=== PATIENT | female | born 1940 | race Caucasian/White ===

== ENCOUNTER → 2017-01-20 | Outpatient (CLI) | payer OTHER ==
[2014-11-08 09:33] VITALS: BP 122/65
== END ==
LOC: RT 12:51
PROVIDERS: ATTEND Obstetrics & Gynecology Obstetrics
DX: R26.89 Other abnormalities of gait and mobility (principal)
CPT/HCPCS: 95910

== ENCOUNTER → 2017-08-17 | Outpatient (CLI) | payer OTHER ==
[2014-11-08 09:33] VITALS: BP 122/65
--- NOTE | 2017-08-17 11:13 | MG ---
HISTORY: SCREENING Comparison: 08/08/2016 FINDINGS: Bilateral CC and MLO projections of the right and left breast were obtained. Dense fibroglandular ti ssue is seen to be present. No significant architectural distortion, mass or clustered microcalcific ations can be observed to suggest malignancy. No skin thickening or nipple retraction is appreciated . No pathological lymphadenopathy can be identified. Benign-appearing calcifications scattered thro ughout the right and left breasts are observed. IMPRESSION: NO RADIOGRAPHIC EVIDENCE OF MALIGNANCY. ACR CATEGORY: 2 - benign findings. FOLLOW-UP EXAM 1 YEAR. Diagnostic CAD was utilized and reviewed. * 0 (ZERO) - ASSESSMENT INCOMPLETE; ADDITIONAL IMAGING IS NEEDED. * 1/ (ONE) - NEGATIVE. * 2/II (TWO) - BENIGN FINDINGS. * 3/III (THREE) - PROBABLY BENIGN FINDING; SHORT INTERVAL FOLLOW-UP SUGGESTED. * 4/IV (FOUR) - SUSPICIOUS ABNORMALITY; BIOPSY SHOULD BE CONSIDERED. * 5/V - HIGHLY SUSPICIOUS OF MALIGNANCY; BIOPSY SHOULD BE PERFORMED. A NEGATIVE X-RAY REPORT SHOULD NOT DELAY BIOPSY IF A DOMINANT OR CLINICALLY SUSPICIOUS MASS IS PRESENT; 4 TO 8 PERCENT OF CANCERS ARE NOT IDENTIFIED BY X-RAY. A NEGA TIVE REPORT MAY REINFORCE THE CLINICAL IMPRESSION. ADENOSIS AND DENSE BREASTS MAY OBSCURE AN UNDERLY ING NEOPLASM. Reported By:
== END ==
LOC: RAD 09:07
PROVIDERS: ATTEND Specialist
DX: Z12.31 Encounter for screening mammogram for malignant neoplasm of breast (principal)
CPT/HCPCS: 77067

== ENCOUNTER 2018-08-23 19:58 | Observation (INO) ==
[2018-08-23] MEDS ORDERED: ZOFRAN INJ 4 MG VIAL ONE (20:19)
[2018-08-23] MEDS ORDERED: NS 1000 ML 1,000 ML ONE (20:29)
[2018-08-23] MEDS: NS 1000 ML 1,000 ML IV SCH (20:30)
[2018-08-23] MEDS ORDERED: ZOFRAN INJ 4 MG VIAL IVP ONE (20:30)
[2018-08-23 20:40] LABS: BASOPHILS % (AUTO) 0.3 % (0.2-1.0); EOSINOPHILS # (AUTO) 0.3 x10^3/uL (0.0-0.2); EOSINOPHILS % (AUTO) 2.3 % (0.9-2.9); HEMATOCRIT 41.8 % (36.0-47.0); HEMOGLOBIN 13.8 g/dL (12.0-16.0); LYMPHOCYTES # (AUTO) 0.5 X10^3/uL (1.3-2.9); LYMPHOCYTES % (AUTO) 4.2 % (21.0-51.0); MEAN CORPUSCULAR HEMOGLOBIN 28.2 pg (27.0-34.0); MEAN CORPUSCULAR VOLUME 85.7 fL (80.0-100.0); MEAN PLATELET VOLUME 9.4 fL (7.4-11.0); MONOCYTES # (AUTO) 0.6 x10^3/uL (0.3-0.8); MONOCYTES % (AUTO) 4.5 % (0.0-13.0); NEUTROPHILS # (AUTO) 11.1 x10^3/uL (2.2-4.8); NEUTROPHILS % (AUTO) 88.7 % (42.0-75.0); PLATELET COUNT 231 X10^3/uL (150.0-450.0); RED BLOOD COUNT 4.87 X10^6/uL (3.5-5.4); RED CELL DISTRIBUTION WIDTH 13.1 % (11.6-16.5); WHITE BLOOD COUNT 12.6 X10^3/uL (3.6-10.0)
[2018-08-23 20:56] LABS: BILIRUBIN,URINE NEGATIVE (NEGATIVE); BLOOD/HEMOGLOBIN,URINE 1+ (NEGATIVE); GLUCOSE, URINE NEGATIVE (NEGATIVE); KETONES,URINE 1+ (NEGATIVE); LEUKOCYTE ESTERASE ,URINE 1+ (NEGATIVE); NITRITES,URINE NEGATIVE (NEGATIVE); PROTEIN,URINE 2+ (NEGATIVE); UROBILINOGEN,URINE NORMAL (NORMAL)
[2018-08-23 20:56] LABS: LACTIC ACID 1.7 mmol/L (0.4-2.0)
[2018-08-23 20:58] LABS: BLOOD UREA NITROGEN 18 mg/dL (7-18); CALCIUM 9.7 mg/dL (8.5-10.1); CARBON DIOXIDE 22.6 mmol/L (21-32); CHLORIDE 96 mmol/L (98-107); COR NA(FOR HYPERGLY) 133 mmol/L (136-145); CREATININE 1.32 mg/dL (0.55-1.02); SODIUM 131 mmol/L (136-145); TROPONIN I < 0.02 ng/mL (0-1.5); eGFR NON BLACK RACES 41 (>60)
[2018-08-23 21:02] LABS: ALANINE AMINOTRANSFERASE 115 Units/L (12-78); ALBUMIN 3.5 g/dL (3.4-5.0); ALKALINE PHOSPHATASE 77 Units/L (46-116); AMYLASE 63 Units/L (25-115); ASPARTATE AMINO TRANSFERASE 123 Units/L (15-37); CKMB % 3.1 % (<4); CREATINE KINASE 32 Units/L (26-192); CREATINE KINASE MB < 1.0 ng/mL (0-4.0); LIPASE 149 Units/L (73-393); TOTAL PROTEIN 7.8 g/dL (6.4-8.2)
[2018-08-23 21:08] LABS: AMORPHOUS SEDIMENT,UR 1+ /HPF (NEGATIVE); APPEARANCE,URINE CLEAR (CLEAR); BACTERIA,URINE TRACE /HPF (NEGATIVE); COLOR,URINE YELLOW (YELLOW); RENAL EPITHELIAL CELLS,URINE FEW /HPF (NEGATIVE); SQUAMOUS EPITHELIAL CELL,UR MODERATE /HPF (NEGATIVE)
--- NOTE | 2018-08-23 21:34 | DR.GENAD ---
HPI Time Seen Time Seen by Provider: 08/23/18 20:19 HPI Comment HPI Comment: PATIENT IS 78YR OLD FEMALE WITH HISTORY OF HYPERTENSION AND HYPOTHYROIDISM PRESENTS TO ED WITH INCREASING GENERALIZE WEAKNESS AND FEVER FOR FEW DAYS. SHE IS HAVING NAUSEA AND VOMITING TODAY. CURRENTLY TAKING MACROBID PAST 2 DAYS FOR UTI. DENIES CHEST PAIN. Complaint/Symptoms Chief Complaint Doctors Comments: FEVER, GENERALIZE WEAKNESS, NAUSEA AND VOMITING. Nurses notes reviewed Nurses Notes Review: Yes Source History Provided: Patient and Family Member Mode of Arrival Mode of Arrival: Wheelchair Timing Came on: Suddenly Duration Duration: Constant Duration: Days Severity Severity: Moderate Modifying Factors Worsens:: MOVING Improves:: REST. Associated Signs and Symptoms Associated Signs and Symptoms: NAUSEA AND VOMITING. PMH PMH Past Medical History: Hypertension and Hypothyroidism Past Surgical History: Yes Surgical History: Ortho Surgery Family History Family Medical History: Cancer Social History Do you use any recreational Drugs:: No ROS Review of Systems Constitutional: Fever, Malaise, Weakness and Fatigue Eyes: No Symptoms Reported ENTM: No Symptoms Reported Respiratoy: Short of Breath Cardiovascular: No Symptoms Reported Gastrointestinal/Abdominal: Abdominal Pain, Nausea and Vomiting Genitourinary: No Symptoms Reported Neurological: Weakness Musculoskeletal: No Symptoms Reported Integumentary: No Symptoms Reported Hematologic/Lymphatic: No Symptoms Reported Endocrine: No Symptoms Reported Psychiatric: No Symptoms Reported All Other Systems: Reviewed and Negative PE Vital Signs Vitals: Temperature 97.7 F Pulse Rate [Right Brachial] 75 Pulse Rate [Left] 71 Pulse Rate 84 Respiratory Rate 20 Blood Pressure [Left Arm] 134/63 Blood Pressure 147/65 O2 Sat by Pulse Oximetry 93 General Limitations: No Limitations General Appearance: Alert Head Head Exam: Normal Inspection Eyes Eye exam: Normal Appearance ENT ENT Exam: Normal Exam External Ear Exam: Normal External Inspection TM/Canal Exam: Bilateral: Normal Nose Exam: Normal Nose Exam Mouth Exam: Normal Inspection Throat Exam: Normal Inspection Neck Neck Exam: Normal Inspection and Trachea Midline; negative Tenderness, Meningismus and Lymphadenopathy Chest Chest Inspection: Symmetric Chest Wall Rise Respiratory Respiratory Exam: Normal Lung Sounds Bilat Respiratory Exam: Bilateral: Rhonchi Cardiovascular Cardiovascular Exam: Regular Rate and Normal Rhythm Abdominal Exam Abdominal Exam: Normal Inspection, Normal Bowel Sounds, Soft and Tenderness Abdominal Tenderness: Diffuse and Moderate Extremities Extremities Exam: Normal Inspection Back Back Exam: Normal Inspection Neurologic Neurological Exam: Alert Skin Skin Exam: Dry MDM Additional Information Additional Information Obtained From: Family Differential Diagnosis Differential Diagnosis: GENRALIZE WEAKNESS, NAUSEA/VOMITING, DEHYDRATION, PYLONEPHRITIS, PNEUMONIA, COURSE Treatment Treatment: SEE ORDERS. IV FLUIDS AND IV ANTIBIOTICS IN ED. Consultation Consultation Comments: DISCUSS PATIENT WITH DR. LUTZ. HE WILL ADMIT PATIENT. Education/Counseling Education/Counseling: Patient and Family Educated On: Diagnosis ROR Labs Reviewed Laboratory Results Reviewed?: Yes Result Diagrams: 08/24/18 04:34 08/24/18 04:34 Laboratory: WBC 7.1 X10^3/uL (3.6-10.0) 08/24/18 04:34 RBC 4.30 X10^6/uL (3.5-5.4) 08/24/18 04:34 Hgb 12.1 g/dL (12.0-16.0) 08/24/18 04:34 Hct 37.0 % (36.0-47.0) 08/24/18 04:34 MCV 86.0 fL (80.0-100.0) 08/24/18 04:34 MCH 28.2 pg (27.0-34.0) 08/24/18 04:34 MCHC 32.8 g/dL (33.0-35.0) L 08/24/18 04:34 RDW 13.1 % (11.6-16.5) 08/24/18 04:34 Plt Count 207 X10^3/uL (150.0-450.0) 08/24/18 04:34 MPV 9.5 fL (7.4-11.0) 08/24/18 04:34 Neut % (Auto) 82.3 % (42.0-75.0) H 08/24/18 04:34 Lymph % (Auto) 8.7 % (21.0-51.0) L 08/24/18 04:34 [place] % (Auto) 5.5 % (0.0-13.0) 08/24/18 04:34 Eos % (Auto) 2.9 % (0.9-2.9) 08/24/18 04:34 Baso % (Auto) 0.6 % (0.2-1.0) 08/24/18 04:34 Neut # (Auto) 5.8 x10^3/uL (2.2-4.8) H 08/24/18 04:34 Lymph # (Auto) 0.6 X10^3/uL (1.3-2.9) L 08/24/18 04:34 [place] # (Auto) 0.4 x10^3/uL (0.3-0.8) 08/24/18 04:34 Eos # (Auto) 0.2 x10^3/uL (0.0-0.2) 08/24/18 04:34 Baso # (Auto) 0.0 X10^3/uL (0.0-0.1) 08/24/18 04:34 Absolute Nucleated RBC 0.0 /100WBC 08/24/18 04:34 Sodium 136 mmol/L (136-145) 08/24/18 04:34 Corrected Sodium TNP 08/24/18 04:34 Potassium 4.1 mmol/L (3.5-5.1) 08/24/18 04:34 Chloride 102 mmol/L (98-107) 08/24/18 04:34 Carbon Dioxide 26.4 mmol/L (21-32) 08/24/18 04:34 BUN 14 mg/dL (7-18) 08/24/18 04:34 Creatinine 1.13 mg/dL (0.55-1.02) H 08/24/18 04:34 Est GFR (MDRD) Af Amer 60 (>60) 08/24/18 04:34 Est GFR (MDRD) Non-Af 49 (>60) L 08/24/18 04:34 Glucose 103 mg/dL (65-99) H 08/24/18 04:34 Lactic Acid 1.7 mmol/L (0.4-2.0) 08/23/18 20:30 Calcium 9.2 mg/dL (8.5-10.1) 08/24/18 04:34 Corrected Calcium 10.2 mg/dL (8.5-10.1) H 08/24/18 04:34 Magnesium 2.0 mg/dL (1.7-2.9) 08/24/18 04:34 Total Bilirubin 0.30 mg/dL (0.2-1.0) 08/24/18 04:34 AST 70 Units/L (15-37) H 08/24/18 04:34 ALT 87 Units/L (12-78) H 08/24/18 04:34 Alkaline Phosphatase 58 Units/L (46-116) 08/24/18 04:34 Creatine Kinase 32 Units/L (26-192) 08/24/18 11:00 CK-MB (CK-2) < 1.0 ng/mL (0-4.0) 08/24/18 11:00 CK/CKMB % Calc 3.1 % (<4) 08/24/18 11:00 Troponin I < 0.02 ng/mL (0-1.5) 08/24/18 11:00 B-Natriuretic Peptide 49.0 pg/mL (0-79) 08/23/18 20:30 Total Protein 6.3 g/dL (6.4-8.2) L 08/24/18 04:34 Albumin 2.8 g/dL (3.4-5.0) L 08/24/18 04:34 Globulin 3.5 g/dL (2.5-4.5) 08/24/18 04:34 Albumin/Globulin Ratio 0.8 Ratio (1.1-2.1) L 08/24/18 04:34 Amylase 63 Units/L (25-115) 08/23/18 20:30 Lipase 149 Units/L (73-393) 08/23/18 20:30 Specimen Type Clean catch urine 08/23/18 20:50 Urine Color Yellow (YELLOW) 08/23/18 20:50 Urine Appearance Clear (CLEAR) 08/23/18 20:50 Urine pH 6.0 (5.0 - 8.0) 08/23/18 20:50 Ur Specific [place] 1.020 (1.000-1.030) 08/23/18 20:50 Urine Protein 2+ (NEGATIVE) 08/23/18 20:50 Urine Glucose (UA) Negative (NEGATIVE) 08/23/18 20:50 Urine Ketones 1+ (NEGATIVE) 08/23/18 20:50 Urine Occult Blood 1+ (NEGATIVE) 08/23/18 20:50 Urine Nitrite Negative (NEGATIVE) 08/23/18 20:50 Urine Bilirubin Negative (NEGATIVE) 08/23/18 20:50 Urine Urobilinogen Normal (NORMAL) 08/23/18 20:50 Ur Leukocyte Esterase 1+ (NEGATIVE) 08/23/18 20:50 Urine RBC 3-5 /HPF (NONE SEEN) 08/23/18 20:50 Urine WBC 3-5 /HPF (NONE SEEN) 08/23/18 20:50 Ur Squamous Epith Cells Moderate /HPF (NEGATIVE) 08/23/18 20:50 Ur Renal Epithelial Cell Few /HPF (NEGATIVE) 08/23/18 20:50 Amorphous Sediment 1+ /HPF (NEGATIVE) 08/23/18 20:50 Urine Bacteria Trace /HPF (NEGATIVE) 08/23/18 20:50 Ur Culture Indicated? No/not indicated 08/23/18 20:50 XRAY XRAY Interpreted by: Radiologist XRAY Findings: SEE REPORT. HAVE DISCUSS REPORT WITH PATIENT AND FAMILY. Diagnosis Discharge Problem: Generalized weakness, UTI (urinary tract infection), Nausea & vomiting
--- NOTE | 2018-08-23 22:36 | CT ---
STUDY: CT ABDOMEN AND PELVIS WITHOUT IV AND ORAL CONTRAST HISTORY: Weakness, UTI, nausea. Comparison: November 08, 2014. Technique: Multiple axial images of the abdomen and pelvis were obtained from the lung bases to the pubic symphysis without the administration of IV contrast. Findings: There are changes of COPD in visualized portions of both lungs. There is atelectasis in both lung bases. There may be very small bilateral pleural effusions. CT abdomen: The liver, gallbladder, spleen, pancreas, kidneys, and adrenal glands are normal in appearance. No significant mesenteric lymphadenopathy or inflammatory stranding is appreciated. The stomach is normal in appearance. The small bowel is normal in appearance, without evidence of bowel wall thickening or small bowel obstruction. The terminal ileum and cecum are normal. The appendix is normal in appearance. There is no evidence of right lower quadrant fat stranding. The ascending and transverse colon are within normal limits. The descending colon contains scattered diverticuli. CT pelvis: There multiple diverticuli in the sigmoid colon. There is no evidence of diverticulitis. The rectum is normal. The urinary bladder is mostly obscured by beam hardening and streak artifact from bilateral hip prostheses. No abnormal fluid collections are identified in the pelvis. There is no evidence of acute osseous abnormality. IMPRESSION: 1. No evidence of acute abdominal or pelvic abnormality. 2. Diverticulosis without evidence of diverticulitis. Reported By:
[2018-08-23] MEDS ORDERED: ROCEPHIN VIAL 1 GRAM IVP ONE (23:12)
[2018-08-23] MEDS ORDERED: ROCEPHIN VIAL 1 GRAM ONE (23:24)
[2018-08-24] MEDS ORDERED: VITAMIN A 8000 UNIT PO SCH (00:12)
--- NOTE | 2018-08-24 00:12 | RAD ---
AP chest Indication: Increasing weakness with nausea Comparison: None available Findings: Heart size is enlarged. There is moderate interstitial lung changes bilaterally; however, there is also increased peribronchial thickening bilaterally. No dense airspace consolidation pleural effusion or pneumothorax. No acute osseous abnormality. Impression: Cardiomegaly with chronic interstitial lung changes and diffuse increased peribronchial thickening which is indeterminate as this can be seen in setting of acute or chronic bronchitis for which clinical correlation is needed. No pleural effusion or pneumothorax. Reported By:
[2018-08-24 01:11] VITALS: BMI 27.2
[2018-08-24] MEDS: NS 1000 ML 1,000 ML IV SCH ×3 (04:49→20:03)
[2018-08-24 05:16] LABS: BASOPHILS % (AUTO) 0.6 % (0.2-1.0); EOSINOPHILS # (AUTO) 0.2 x10^3/uL (0.0-0.2); EOSINOPHILS % (AUTO) 2.9 % (0.9-2.9); HEMOGLOBIN 12.1 g/dL (12.0-16.0); LYMPHOCYTES # (AUTO) 0.6 X10^3/uL (1.3-2.9); LYMPHOCYTES % (AUTO) 8.7 % (21.0-51.0); MEAN CORPUSCULAR HEMOGLOBIN 28.2 pg (27.0-34.0); MEAN CORPUSCULAR HGB CONC 32.8 g/dL (33.0-35.0); MEAN PLATELET VOLUME 9.5 fL (7.4-11.0); MONOCYTES # (AUTO) 0.4 x10^3/uL (0.3-0.8); MONOCYTES % (AUTO) 5.5 % (0.0-13.0); NEUTROPHILS # (AUTO) 5.8 x10^3/uL (2.2-4.8); NEUTROPHILS % (AUTO) 82.3 % (42.0-75.0); PLATELET COUNT 207 X10^3/uL (150.0-450.0); RED CELL DISTRIBUTION WIDTH 13.1 % (11.6-16.5); WHITE BLOOD COUNT 7.1 X10^3/uL (3.6-10.0)
[2018-08-24 05:31] LABS: ALANINE AMINOTRANSFERASE 87 Units/L (12-78); ALBUMIN 2.8 g/dL (3.4-5.0); ALKALINE PHOSPHATASE 58 Units/L (46-116); ASPARTATE AMINO TRANSFERASE 70 Units/L (15-37); BLOOD UREA NITROGEN 14 mg/dL (7-18); CALCIUM 9.2 mg/dL (8.5-10.1); CARBON DIOXIDE 26.4 mmol/L (21-32); CHLORIDE 102 mmol/L (98-107); COR CA(FOR HYPOALB) 10.2 mg/dL (8.5-10.1); CREATINE KINASE 33 Units/L (26-192); CREATINE KINASE MB < 1.0 ng/mL (0-4.0); CREATININE 1.13 mg/dL (0.55-1.02); SODIUM 136 mmol/L (136-145); TOTAL PROTEIN 6.3 g/dL (6.4-8.2); TROPONIN I < 0.02 ng/mL (0-1.5); eGFR NON BLACK RACES 49 (>60)
[2018-08-24] MEDS: VITAMIN A 8000 UNIT PO SCH (08:25)
[2018-08-24] MEDS: GLUCOSAMINE CHONDROITIN PO SCH (08:25)
[2018-08-24] MEDS: SYNTHROID 75 mcg TAB PO SCH (08:26)
[2018-08-24] MEDS: ROCEPHIN VIAL 1 GRAM IVP SCH (08:26)
[2018-08-24] MEDS: COZAAR PO SCH (08:26)
[2018-08-24] MEDS: MOBIC TAB 15 MG PO SCH (08:26)
[2018-08-24] MEDS: OSCAL+D or CALTRATE+D PO SCH (08:27)
[2018-08-24] MEDS: PATIENT'S HOME MEDICATION SCH (08:27)
[2018-08-24] MEDS ORDERED: CALCIUM CARBONATE VITAMIN D3 PO SCH (09:00)
[2018-08-24] MEDS ORDERED: PATIENT'S HOME MEDICATION (Meloxicam [Meloxicam] 7.5 MG) PO SCH (09:00)
[2018-08-24 11:32] LABS: CKMB % 3.1 % (<4); CREATINE KINASE 32 Units/L (26-192); CREATINE KINASE MB < 1.0 ng/mL (0-4.0); TROPONIN I < 0.02 ng/mL (0-1.5)
--- NOTE | 2018-08-24 15:44 | US ---
RIGHT UPPER QUADRANT ULTRASOUND HISTORY: Elevated LFTs Comparison: None Technique: Multiple george scale and color flow Doppler images of the right upper quadrant were obtained. Findings: Overall study is limited by overlying bowel gas. The liver is increased in echogenicity. No focal mass. No intrahepatic bile duct dilatation. No gallstones. No pericholecystic fluid or gallbladder wall thickening. The technologist did not report a positive sonographic Padron's sign. The common bile duct measures 2 mm. The right kidney measures 9.7 cm. No hydronephrosis or renal masses. The pancreas is obscured by overlying bowel gas. IMPRESSION: 1. Findings of hepatic steatosis. Reported By:
[2018-08-24] MEDS ORDERED: MIRALAX POWDER (1 DOSE 17 G) PO ONE (19:50)
[2018-08-24] MEDS ORDERED: COLACE CAP 100 MG PO SCH (21:00)
[2018-08-25] MEDS: NS 1000 ML 1,000 ML IV SCH (04:30)
[2018-08-25 05:22] LABS: BASOPHILS # (AUTO) 0.1 X10^3/uL (0.0-0.1); BASOPHILS % (AUTO) 1.3 % (0.2-1.0); EOSINOPHILS # (AUTO) 0.4 x10^3/uL (0.0-0.2); EOSINOPHILS % (AUTO) 10.3 % (0.9-2.9); HEMOGLOBIN 11.9 g/dL (12.0-16.0); LYMPHOCYTES # (AUTO) 0.9 X10^3/uL (1.3-2.9); LYMPHOCYTES % (AUTO) 21.4 % (21.0-51.0); MEAN CORPUSCULAR HEMOGLOBIN 27.9 pg (27.0-34.0); MEAN CORPUSCULAR HGB CONC 32.1 g/dL (33.0-35.0); MONOCYTES # (AUTO) 0.5 x10^3/uL (0.3-0.8); MONOCYTES % (AUTO) 11.7 % (0.0-13.0); NEUTROPHILS # (AUTO) 2.4 x10^3/uL (2.2-4.8); NEUTROPHILS % (AUTO) 55.3 % (42.0-75.0); PLATELET COUNT 193 X10^3/uL (150.0-450.0); RED BLOOD COUNT 4.25 X10^6/uL (3.5-5.4); RED CELL DISTRIBUTION WIDTH 13.2 % (11.6-16.5); WHITE BLOOD COUNT 4.3 X10^3/uL (3.6-10.0)
[2018-08-25 05:31] LABS: ALANINE AMINOTRANSFERASE 157 Units/L (12-78); ALBUMIN 2.4 g/dL (3.4-5.0); ALKALINE PHOSPHATASE 62 Units/L (46-116); ASPARTATE AMINO TRANSFERASE 134 Units/L (15-37); BLOOD UREA NITROGEN 13 mg/dL (7-18); CALCIUM 8.3 mg/dL (8.5-10.1); CARBON DIOXIDE 21.1 mmol/L (21-32); CHLORIDE 106 mmol/L (98-107); COR CA(FOR HYPOALB) 9.6 mg/dL (8.5-10.1); CREATININE 1.07 mg/dL (0.55-1.02); SODIUM 139 mmol/L (136-145); TOTAL PROTEIN 5.9 g/dL (6.4-8.2); eGFR NON BLACK RACES 52 (>60)
[2018-08-25 08:41] VITALS: BP 137/65
[2018-08-25] MEDS: MOBIC TAB 15 MG PO SCH (09:22)
[2018-08-25] MEDS: SYNTHROID 75 mcg TAB PO SCH (09:23)
[2018-08-25] MEDS: OSCAL+D or CALTRATE+D PO SCH (09:23)
[2018-08-25] MEDS: COZAAR PO SCH (09:24)
[2018-08-25] MEDS: ROCEPHIN VIAL 1 GRAM IVP SCH (09:24)
[2018-08-25] MEDS: GLUCOSAMINE CHONDROITIN PO SCH (09:25)
[2018-08-25] MEDS: VITAMIN A 8000 UNIT PO SCH (09:25)
[2018-08-25] MEDS: PATIENT'S HOME MEDICATION SCH (09:30)
== END 2018-08-25 10:53 | disposition home or self-care (01) ==
LOC: ER 19:58 → MED/SURG 19:58
PROVIDERS: ADMIT Internal Medicine; ATTEND Obstetrics & Gynecology Obstetrics
DX: R74.8 Abnormal levels of other serum enzymes; R73.09 Other abnormal glucose; N39.0 Urinary tract infection, site not specified; K57.90 Diverticulosis of intestine, part unspecified, without perforation or abscess without bleeding; K76.0 Fatty (change of) liver, not elsewhere classified; R53.1 Weakness; K59.09 Other constipation; R11.2 Nausea with vomiting, unspecified
CPT/HCPCS: 36415; 71010; 71045; 74176; 76705; 80053; 81001; 82150; 82550; 82553; 83605; 83690; 83735; 83880; 84484; 85025; 87040; 87086; 93005; 94760; 96365; 96367; 96374; 96375; 99284; A4222; G0378; J0696; J2405; J7030